=== PATIENT | male | born 1960 | race Caucasian/White ===

== ENCOUNTER 2019-05-24 22:01 | Emergency (ER) | payer OTHER ==
[2019-05-24 22:39] VITALS: PULSE 96
[2019-05-24] MEDS ORDERED: DIAZEPAM 5 MG TAB PO STA (23:27)
--- NOTE | 2019-05-24 23:37 | ED ---
Psych HPI - General Source: police Mode of arrival: ambulatory <Irena Rudd - Last Filed: 05/24/19 23:34> <Mukesh Connor - Last Filed: 05/25/19 02:52> - General Chief Complaint: Psychiatric Symptoms Stated Complaint: Mental Health Time Seen by Provider: 05/24/19 23:18 - History of Present Illness Initial Comments: 58-year-old male presenting for psychiatric assessment. Per the petition the patient has been drinking alcohol and abusing substances at home, which his mother believes he is doing to harm himself. It states that he stated that he would like to "put a bullet in his head." He should states that he was taken off of Xanax recently and has had increasing anxiety which is why he's been drinking alcohol. He denies any drug abuse. He denies any current suicidal or homicidal ideations. Denies any history of psychiatric admissions and suicide attempts. He denies any worsening depression or auditory or visual halluci nations. (Irena Rudd) - Related Data Home Medications Medication Instructions Recorded Confirmed Divalproex ER [Depakote ER] 500 mg PO HS 05/24/19 05/24/19 Furosemide [Lasix] 20 mg PO DAILY 05/24/19 05/24/19 Metoprolol Succinate (ER) [Toprol 50 mg PO DAILY 05/24/19 05/24/19 Xl] Naproxen 500 mg PO BID 05/24/19 05/24/19 Potassium Chloride [Klor-Con 10] 10 meq PO DAILY 05/24/19 05/24/19 QUEtiapine [SEROquel] 100 mg PO HS 05/24/19 05/24/19 levETIRAcetam [Keppra] 500 mg PO BID 05/24/19 05/24/19 Allergies Allergy/AdvReac Type Severity Reaction Status Date / Time No Known Allergies Allergy Verified 05/24/19 22:39 Review of Systems ROS Other: All systems not noted in ROS Statement are negative. <Irena Rudd - Last Filed: 05/24/19 23:34> ROS Other: All systems not noted in ROS Statement are negative. <Mukesh Connor - Last Filed: 05/25/19 02:52> ROS Statement: Those systems with pertinent positive or pertinent negative responses have been documented in the HPI. Review of Systems Constitutional: Denies fever, chills Eyes: Denies change in vision, Denies pain Ears, nose, mouth, throat: Denies headaches, Denies sore throat Cardiovascular: Denies chest pain. Denies palpitations Respiratory: Denies shortness of breath, Denies cough Gastrointestinal: Denies abdominal pain. Denies nausea, vomiting, diarrhea. Genitourinary: Denies hematuria, Denies infections Musculoskeletal: Denies pain, Denies swelling Integumentary: Denies rash Neurological: Denies headache, focal weakness, focal numbness Psychiatric: Positive anxiety Hematologic/Lymphatic: Denies easy bleeding or bruising (Irena Rudd) Past Medical History Past Medical History: Hypertension Additional Past Medical History / Comment(s): Hep C History of Any Multi-Drug Resistant Organisms: None Reported Past Surgical History: Orthopedic Surgery Past Psychological History: No Psychological Hx Reported Smoking Status: Current every day smoker Past Alcohol Use History: Daily Past Drug Use History: None Reported <Irena Rudd - Last Filed: 05/24/19 23:34> General Exam Limitations: no limitations <Irena Rudd - Last Filed: 05/24/19 23:34> - General Exam Comments Initial Comments: General: Awake, alert, No acute Distress HENT: Normocephalic. Chronic wound to superior aspect of forehead. Eyes: PERRL. EOMI. No scleral icterus. No injected conjunctiva Neck: Full ROM Chest/Lungs: Clear to auscultation bilaterally. No wheezing, rhonchi, or rales Cardiac: Regular rate, rhythm. No murmurs or rubs Abdomen/GI: Soft, nontender, nondistended. No rebound, guarding, or rigidity. Musculoskeletal: Full ROM Skin: Warm, dry, intact Psych: Angry. Not suicidal. Not homicidal. Not hallucinating. Neurologic: A/Ox3, no weakness, no sensory deficit, no abnormal gait, no coordination deficit (Irena Rudd) Course Vital Signs 05/24/19 22:35 Temperature 98.1 F Pulse Rate 96 Respiratory 20 Rate Blood Pressure 168/110 O2 Sat by Pulse 97 Oximetry Medical Decision Making - Lab Data Lab Results 05/24/19 Range/Units 23:29 Urine Opiates Screen Not Detected (NotDetected) Ur Oxycodone Screen Not Detected (NotDetected) Urine Methadone Screen Not Detected (NotDetected) Ur Propoxyphene Screen Not Detected (NotDetected) Ur Barbiturates Screen Not Detected (NotDetected) U Tricyclic Antidepress Not Detected (NotDetected) Ur Phencyclidine Scrn Not Detected (NotDetected) Ur Amphetamines Screen Not Detected (NotDetected) U Methamphetamines Scrn Not Detected (NotDetected) U Benzodiazepines Scrn Not Detected (NotDetected) Urine Cocaine Screen Not Detected (NotDetected) U Marijuana (THC) Screen Detected H (NotDetected) Disposition <Irena Rudd - Last Filed: 05/24/19 23:34> Is patient prescribed a controlled substance at d/c from ED?: No <Mukesh Connor - Last Filed: 05/25/19 02:52> Clinical Impression: Alcohol intoxication Disposition: HOME SELF-CARE Condition: Fair Instructions (If sedation given, give patient instructions): Alcohol Intoxica tion (ED) Referrals: Chu Omalley MD [Primary Care Provider] - 1-2 days
[2019-05-24 23:55] LABS: Amphetamine Screen,Urine Not Detected (NotDetected); Barbiturate Screen,Urine Not Detected (NotDetected); Benzodiazepines Screen,Urine Not Detected (NotDetected); Cocaine Screen,Urine Not Detected (NotDetected); Methadone Screen, Urine Not Detected (NotDetected); Opiate Screen,Urine Not Detected (NotDetected); Oxycodone Screen, Urine Not Detected (NotDetected); Phencyclidine Screen,Urine Not Detected (NotDetected); Tricyclic Antidepressant,Urine Not Detected (NotDetected); Urn Cannabinoid Scrn Detected (NotDetected)
[2019-05-25 04:07] VITALS: RESP 18; TEMP 98
[2019-05-25] MEDS ORDERED: LORazepam 1 MG TAB PO STA (04:09)
[2019-05-25 04:39] VITALS: BP 189/100
== END 2019-05-25 04:40 | disposition home or self-care (01) ==
LOC: EC 22:01
DX: F10.129 Alcohol abuse with intoxication, unspecified (principal); S00.80XA Unspecified superficial injury of other part of head, initial encounter; I10 Essential (primary) hypertension; F41.9 Anxiety disorder, unspecified; F17.200 Nicotine dependence, unspecified, uncomplicated; Z79.899 Other long term (current) drug therapy; X58.XXXA Exposure to other specified factors, initial encounter
CPT/HCPCS: 80306; 82075; 99285